=== PATIENT | female | born 1990 | race Caucasian/White ===

== ENCOUNTER 2016-07-30 05:26 | Outpatient (CLI) | payer OTHER, MEDICAID ==
[~2016-07-30] VITALS: Ht 167.6 cm; Wt 96.8 kg
[2016-07-30] MEDS ORDERED: PRENATAL1 TA7 PO (06:05)
[2016-07-30] MEDS ORDERED: TUMS500 MG PO (06:05)
[2016-07-30 06:15] VITALS: BP 101/74; PULSE 105
[2016-07-30 06:45] VITALS: BP 103/70; PULSE 98
[2016-07-30 10:20] VITALS: BP 107/75; PULSE 99
== END 2016-07-30 10:30 | disposition home or self-care (01) ==
LOC: LDRO 05:26
DX: O47.1 False labor at or after 37 completed weeks of gestation (principal); Z3A.37 37 weeks gestation of pregnancy

== ENCOUNTER 2016-08-09 02:01 | Inpatient (IN) | payer OTHER, MEDICAID ==
[~2016-08-09] VITALS: Ht 172.7 cm; Wt 96.8 kg
[2016-08-09] VITALS (21 sets, daily range): BP systolic 98–142; BP diastolic 53–81; PULSE 69–101; TEMP 97.8–98.1
[~2016-08-09 02:01] MED LIST: PRENATAL1 TA7 PO; TUMS500 MG PO
[2016-08-09 02:50] LABS: BASO % 0.2 % (0.0-2.0); EOS % 0.4 % (0-4.0); GRAN % 73.6 % (42.2-75.2); LYMPH # 2.2 (1.2-3.4); LYMPH % 20.2 % (20.0-51.0); MEAN CELL VOLUME 78 fl (80.0-100.0); MEAN CORPUSCULAR HGB CONC 32 g/dl (33.0-37.0); MEAN PLATELET VOLUME 10.7 fl (7.4-10.4); MONO # 0.5 (0.1-0.6); MONO % 4.9 % (1.7-9.3); PLATELET COUNT 184 K/mm3 (130-400); RED BLOOD COUNT 4.03 M/mm3 (4.10-5.30); REDCELL DISTRIBUTION WIDTH-CV 15.4 % (11.5-14.5); WHITE BLOOD COUNT 10.8 K/mm3 (4.8-10.8)
[2016-08-09] MEDS ORDERED: MOTRIN 800800 MG/TAB PO (02:50)
[2016-08-09] MEDS ORDERED: PERCOCET 325 MG1 TA2 PO (02:50)
[2016-08-09 02:51] LABS: HEMATOCRIT 31.4 % (37.0-47.0); HEMOGLOBIN 10.1 g/dl (12.5-16.0); MEAN CORPUSCULAR HEMOGLOBIN 25 pg (27.0-31.0)
[2016-08-10 07:15] VITALS: BP 87/52; PULSE 89; TEMP 97.9
[2016-08-10 08:29] LABS: HEMATOCRIT 28.2 % (37.0-47.0)
[2016-08-10 16:50] VITALS: BP 105/67; PULSE 93; TEMP 97.8
[2016-08-10 20:55] VITALS: BP 114/74; PULSE 107; TEMP 97.5
[2016-08-11 07:15] VITALS: BP 124/76; PULSE 94; TEMP 98.3
[2016-08-11] MEDS ORDERED: MOTRIN 800800 MG/TAB PO (08:41)
[2016-08-11] MEDS ORDERED: PERCOCET 325 MG1 TA2 PO (08:41)
== END 2016-08-11 10:35 | disposition home or self-care (01) | DRG 765 ==
LOC: LDRO 02:01 → LDR 02:20 → OB 02:20
PROVIDERS: Obstetrics & Gynecology
PROC: 10D00Z1 Extraction of Products of Conception, Low, Open Approach (ICD-10-PCS; principal; 2016-08-09)
DX: O34.211 Maternal care for low transverse scar from previous cesarean delivery (principal); O99.013 Anemia complicating pregnancy, third trimester; D62 Acute posthemorrhagic anemia; N85.8 Other specified noninflammatory disorders of uterus; O69.81X0 Labor and delivery complicated by cord around neck, without compression, not applicable or unspecified; Z3A.39 39 weeks gestation of pregnancy; Z37.0 Single live birth
CPT/HCPCS: J0690; J1885; J2175; J2270; J2370; J2405; J7120

== ENCOUNTER 2018-06-21 22:50 | Outpatient (CLI) | payer OTHER, MEDICAID ==
[~2018-06-21] VITALS: Ht 170.2 cm; Wt 102.7 kg
[~2018-06-21 22:50] MED LIST changes: +MOTRIN 800800 MG/TAB PO; +PERCOCET 325 MG1 TA2 PO
--- NOTE | 2018-06-21 22:58 | NUR ---
Pt arrives to unit by wheelchair with complaint of contractions every 3-4 minutes. Pt is a at 38 weeks and has had 3 previous sections. Pt denies LOF or vaginal bleeding. Pt denies headache, blurry vision, or RUQ pain. EFM and toco explained and applied. Vital signs obtained. Assessment started. Plan of care discussed. 2310 - SVE closed/3
[2018-06-21 23:15] VITALS: BP 113/68; PULSE 104; TEMP 98.1
--- NOTE | 2018-06-22 00:10 | NUR ---
SVE unchanged from previous exam.
--- NOTE | 2018-06-22 00:35 | NUR ---
Tylenol and benadryl given prior to discharge, see MAR. Discharge instructions reviewed with pt, verbalized understanding. Pt seen ambulating off unit with spouse.
== END 2018-06-22 00:35 | disposition home or self-care (01) ==
LOC: LDRO 22:50
DX: O62.9 Abnormality of forces of labor, unspecified (principal); Z3A.38 38 weeks gestation of pregnancy

== ENCOUNTER 2018-06-28 05:25 | Inpatient (IN) | payer OTHER, MEDICAID ==
[~2018-06-28] VITALS: Ht 172.7 cm; Wt 95.5 kg
[2018-06-28] VITALS (18 sets, daily range): BP systolic 78–116; BP diastolic 50–72; PULSE 69–95; TEMP 97.3–98.7
--- NOTE | 2018-06-28 05:30 | NUR ---
0530- PT PRESENTS TO LDR FOR SCHEDULED SECTION, AMBULATORY TO ROOM 213, CHANGED INTO GOWN AND USES SCRUB SKIN PREP. 0535- EFM X2 APPLIED, CONSENTS SIGNED, IV STARTED AND BLOOD DRAWN FOR LAB. PLAN OF CARE DISCUSSED WITH PT AND QUESTIONS ANSWERED. LR INFUSING AND PREOP MEDS GIVEN.
[2018-06-28 06:09] LABS: BASO % 0.2 % (0.0-2.0); EOS # 0.1 (0.0-0.7); EOS % 0.5 % (0-4.0); GRAN # 6.4 (1.4-6.5); GRAN % 66.7 % (42.2-75.2); HEMOGLOBIN 10.9 g/dl (12.5-16.0); LYMPH # 2.6 (1.2-3.4); LYMPH % 27.4 % (20.0-51.0); MEAN CELL VOLUME 79 fl (80.0-100.0); MEAN CORPUSCULAR HEMOGLOBIN 25 pg (27.0-31.0); MEAN CORPUSCULAR HGB CONC 32 g/dl (33.0-37.0); MONO # 0.4 (0.1-0.6); MONO % 4.4 % (1.7-9.3); PLATELET COUNT 221 K/mm3 (130-400); RED BLOOD COUNT 4.34 M/mm3 (4.10-5.30); REDCELL DISTRIBUTION WIDTH-CV 15.2 % (11.5-14.5)
[2018-06-28 06:13] LABS: HEMATOCRIT 34.1 % (37.0-47.0)
[2018-06-28] MEDS ORDERED: MOTRIN 800800 MG/TAB PO (07:24)
[2018-06-28] MEDS ORDERED: PERCOCET 325 MG1 TA2 PO (07:24)
--- NOTE | 2018-06-28 09:32 | NUR ---
Pt states sharp pain in the right lower abdomen near incision. 10mg of percocet given. 1032-Pt states no relief from percocet. Discussed morphine option and warm pack to area. Pt opts to try warm pack 1046-No relief from warm pack. Pt requests morphine. Morphine 5mg given IV. 1102-On reassessment of morphine administration pt states minimal pain relief. Dr. Foster updated on pt status and interventions. Orders for abdominal binder, ice pack, repeat morphine injection and CBC. Pt given morphine, abdominal binder and ice pack. Reports better pain relief currently after second morphine dose.
[2018-06-28 11:46] LABS: BASO % 0.1 % (0.0-2.0); EOS % 0.1 % (0-4.0); GRAN # 11.7 (1.4-6.5); GRAN % 87.1 % (42.2-75.2); HEMATOCRIT 30.3 % (37.0-47.0); HEMOGLOBIN 9.6 g/dl (12.5-16.0); LYMPH # 1.2 (1.2-3.4); LYMPH % 8.7 % (20.0-51.0); MEAN CELL VOLUME 80 fl (80.0-100.0); MEAN CORPUSCULAR HEMOGLOBIN 25 pg (27.0-31.0); MEAN CORPUSCULAR HGB CONC 32 g/dl (33.0-37.0); MEAN PLATELET VOLUME 10.1 fl (7.4-10.4); MONO # 0.4 (0.1-0.6); MONO % 3.1 % (1.7-9.3); PLATELET COUNT 191 K/mm3 (130-400); REDCELL DISTRIBUTION WIDTH-CV 15.2 % (11.5-14.5)
[2018-06-29] VITALS: BP 101/57; PULSE 91; TEMP 97.8
[2018-06-29 07:09] LABS: HEMATOCRIT 29.2 % (37.0-47.0); HEMOGLOBIN 9.2 g/dl (12.5-16.0)
--- NOTE | 2018-06-29 10:26 | NUR ---
Initial visit; Parents thanked [employer] Account Manager for offering congratulations and God's blessings for the of their daughter and for thanking them for choosing [facility].
[2018-06-29 11:23] VITALS: BP 105/63; PULSE 92; TEMP 97.2
--- NOTE | 2018-06-29 15:50 | NUR ---
PT UP TO SHOWER, BANDAGE REMOVED. INCISION EDGES WELL APPROXIMATED, NO REDDNESS/SWELLING NOTED, NO ACTIVE BLEEDING NOTED AT THIS TIME.
[2018-06-29 16:30] VITALS: BP 95/56; PULSE 94; TEMP 97.4
[2018-06-29 19:30] VITALS: BP 107/63; PULSE 116; TEMP 98.3
[2018-06-30 07:15] VITALS: BP 110/69; PULSE 89; TEMP 98.1
[2018-06-30 16:15] VITALS: BP 110/64; PULSE 100; TEMP 98.4
[2018-06-30 17:30] VITALS: BP 133/88; PULSE 79; TEMP 98.1
== END 2018-06-30 19:00 | disposition home or self-care (01) | DRG 784 ==
LOC: OB 05:25 → LDR 14:06 → OB 06-30 19:00
PROVIDERS: ADMIT Obstetrics & Gynecology
PROC: 10D00Z1 Extraction of Products of Conception, Low, Open Approach (ICD-10-PCS; principal; 2018-06-28)
PROC: 0UB70ZZ Excision of Bilateral Fallopian Tubes, Open Approach (ICD-10-PCS; 2018-06-28)
DX: O34.211 Maternal care for low transverse scar from previous cesarean delivery (principal); D62 Acute posthemorrhagic anemia; Z3A.38 38 weeks gestation of pregnancy; Z37.0 Single live birth; Z30.2 Encounter for sterilization; O99.824 Streptococcus B carrier state complicating childbirth; O90.81 Anemia of the puerperium; O69.81X0 Labor and delivery complicated by cord around neck, without compression, not applicable or unspecified
CPT/HCPCS: J0690; J1885; J2270; J2370; J2405; J2590; J3010; J7120